=== PATIENT | female | born 1985 | race Caucasian/White ===

== ENCOUNTER 2020-10-27 01:21 | Emergency (ER) | payer OTHER ==
[~2020-10-27] VITALS: Ht 157.5 cm; Wt 80.0 kg
--- NOTE | 2020-10-27 01:39 | NUR ---
PATIENT STATED THAT SHE USED A NEW FACE CREAM. STARTED INCREASINGLY WORSENED AT 1800 TODAY. PT STATED THAT SHE HAS SWELLING AND REDNESS TO FACE. PATIENT STATED THAT HER SKIN FEELS TIGHT. NO SOB, NO DIFFICULTY BREATHING, TOLERATING OWN SECRETIONS WELL. NO NOTED ACUTE DISTRESS.
[2020-10-27] MEDS ORDERED: DIPHENHYDRAMINE 25 MG CAPSULE ONE (01:47)
[2020-10-27] MEDS ORDERED: FAMOTIDINE 20 MG TABLET ONE (01:47)
[2020-10-27] MEDS ORDERED: DIPHENHYDRAMINE 25 MG CAPSULE PO ONE (02:00)
[2020-10-27] MEDS ORDERED: FAMOTIDINE 20 MG TABLET PO ONE (02:00)
[2020-10-27 02:16] VITALS: BP 134/76
--- NOTE | 2020-10-27 02:30 | NUR ---
Patient given discharge instructions and they have confirmed that they understand the instructions. Patient ambulatory with steady gait.
== END 2020-10-27 02:32 | disposition home or self-care (01) ==
LOC: ED 02:15
DX: T78.3XXA Angioneurotic edema, initial encounter (principal); L23.2 Allergic contact dermatitis due to cosmetics; X58.XXXA Exposure to other specified factors, initial encounter; Y93.89 Activity, other specified; Y92.89 Other specified places as the place of occurrence of the external cause; Y99.8 Other external cause status
CPT/HCPCS: 99284; J7512; Q0163